=== PATIENT | male | born 1940 | race Caucasian/White ===

== ENCOUNTER 2018-06-18 09:47 | Emergency (ER) | payer MEDICARE, BC ==
--- OUTSIDE RECORDS SUMMARY | 2018-06-18 09:52 | XMS REPORT | Continuity of Care Document ---
:1940 External Reference #:[id number] Author Name Simone Khan M.D. Address [address] [place] [address] Care Team Providers Name Role Phone Laith Millard M.D. Primary Care Physician Unavailable Payers Type Date Identification Numbers Payment Provider Subscriber Policy Number: [id number] Medicare - NGS Luis Armando Bermudez PayID: [id number] [address] [place] [address] Policy Number: [id number] [facility] Luis Armando Bermudez PayID: [id number] [address] [place] [address] Advance Directives Description No Information Available Problems Date Description Provider Status Onset: Hypothyroidism Active Onset: Arthritis Active Onset: 12/28/2014 Primary open angle glaucoma Simone Khan M.D. Active Onset: 12/28/2014 Epiretinal membrane Simone Khan M.D. Active Onset: 12/28/2014 Mild / Early Stage Glaucoma Simone Khan M.D. Active Onset: 12/28/2014 Pseudophakia Simone Khan M.D. Active Onset: 07/01/2015 Primary open-angle glaucoma, mild Simone Khan M.D. Active stage Onset: 07/01/2015 Presence of intraocular lens Simone Khan M.D. Active Onset: Total replacement of right knee joint Active Onset: 05/08/2016 Conjunctival hemorrhage Fabiano Morales M.D. Active Onset: 08/31/2016 Bilateral primary open angle glaucoma Simone Khan M.D. 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[employer] ETOH Use Rarely consumes alcohol Tobacco Use Start: Unknown Patient has never smoked Recreational Drug Use Never Used Drugs Smoking Status Reviewed: 05/19/18 Patient has never smoked Allergies, Adverse Reactions, Alerts Date Description Reaction Status Severity Comments 12/27/2014 Sulfa Antibiotics Active 05/08/2016 Nickel Active Medications Medication Date Status Form Strength Qnty SIG Indications Ordering Provider Fosamax Active Tablets 70mg 1 tab 1x Unknown 018 per week Travatan Z Active Solution 0.004% 5units Instill 1 Simone Brewer 015 Drop To Arleo, Both Eyes M.D. Every Night Synthroid Active Tablets 75mcg 1 tab by Unknown 000 mouth every day Fish Oil Active Capsules 1000mg 1 by Unknown 000 mouth every day Aspirin Active Tablets 81mg 1 Tab PO Unknown 000 Qday Simvastatin Active Tablets 10mg Unknown 000 Vitamin D3 Active Tablets 3000Unit Unknown 000 Pred Forte Hx Suspension 1% 5ml One drop H40.1131 Simone Brewer 018 - three Arleo, times a M.D. 018 day in the left eye for three days, then discontin ue. Pred Forte Hx Suspension 1% 5ml One drop H40.11x1 Simone Brewer 016 - three Arleo, times a M.D. 016 day for three days OD, then three times a day for three days OS. Only after procedure . Oxycodone-Acet 0 Hx Tablets 5-325mg Unknown aminophen 000 - 016 Tessalon 0 Hx Capsules 100mg Unknown Perles 000 - 016 Levoxyl 0 Hx Tablets 25mcg Unknown 000 - 018 Immunizations Description No Information Available Vital Signs Date Vital Result Comment 04/07/2018 3:01pm BP Systolic 130 mmHg BP Diastolic 68 mmHg Heart Rate 58 /min Respiratory Rate 16 /min 03/05/2016 1:36pm BP Systolic 120 mmHg BP Diastolic 70 mmHg Heart Rate 68 /min Respiratory Rate 16 /min 02/27/2016 1:47pm BP Systolic 120 mmHg BP Diastolic 72 mmHg Heart Rate 64 /min Respiratory Rate 16 /min Results Description No Information Available Procedures Date Code Description Status 04/07/2018 12432 Trabeculoplasty By Laser Surgery Completed 02/28/2018 53273 Scanning Computerized Ophthalmic Diagnostic Imag Posterior Completed Seg On 02/28/2018 54933 Visual Field Exam Extended Completed 02/28/2018 15438 Est Patient Comprehensive Exam Completed 09/06/2017 39713 Est Patient Intermediate Exam Completed 03/01/2017 32734 Scanning Computerized Ophthalmic Diagnostic Imag Posterior Completed Seg On 03/01/2017 50049 Visual Field Exam Extended Completed 03/01/2017 29767 Est Patient Comprehensive Exam Completed 08/31/2016 80031 Est Patient Intermediate Exam Completed 05/08/2016 02465 Est Patient Intermediate Exam Completed 03/05/2016 51848 Trabeculoplasty By Laser Surgery Completed 02/27/2016 37158 Trabeculoplasty By Laser Surgery Completed 01/06/2016 43009 Scanning Computerized Ophthalmic Diagnostic Imag Posterior Completed Seg On 01/06/2016 62059 Visual Field Exam Extended Completed 01/06/2016 34627 Est Patient Intermediate Exam Completed 07/01/2015 14838 Fundus Photography With Interpretation And Report Completed 07/01/2015 82778 Est Patient Comprehensive Exam Completed 12/28/2014 70653 Visual Field Exam Extended Completed 12/28/2014 69552 Est Patient Intermediate Exam Completed 12/29/2013 18080 Est Patient Intermediate Exam Completed 01/02/2012 78845 Est Patient Intermediate Exam Completed 09/19/2011 08019 Extracapsular Cataract Extraction W/Intraocular Lens Completed 09/12/2011 06151 Extracapsular Cataract Extraction W/Intraocular Lens Completed 09/07/2011 69761 Ophthalmic Biometry Completed 09/07/2011 74912 Ophthalmic Biometry Completed 09/07/2011 82316 Scanning Computerized Opthalmic Diagnostic Posterior Seg Completed Retina 09/07/2011 55281 Visual Field Exam Extended Completed 01/24/2011 20652 Est Patient Intermediate Exam Completed 01/24/2011 92261 Determination Of Refractive State Completed 03/21/2009 63110 Scanning Laser W/Interp And Report Completed 03/21/2009 55531 Determination Of Refractive State Completed 03/21/2009 38906 Est Patient Comprehensive Exam Completed 03/21/2009 30600 Pachymetry Completed 12/07/2008 86305 Visual Field Exam Extended Completed 12/01/2008 56850 Gonioscopy Completed 11/17/2008 36816 Fundus Photography With Interpretation And Report Completed 11/17/2008 01186 Determination Of Refractive State Completed 11/17/2008 99295 Est Patient Comprehensive Exam Completed Encounters Type Date Location Provider Dx Diagnosis Office Visit 03/31/2018 Simone Aguiar, H40.1131 Primary 11:15a carlene LU M.D. 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 open-angle glaucoma, mild stage Office Visit 06/29/2014 10:15a Simone Segura 365.11 Primary Twila Khan MD, pc Lempert, M.D. Angle Glaucoma 365.71 Mild / Early Stage Glaucoma Office Visit 07/01/2013 11:15a Colton Aguiar, 365.11 Primary Open carlene LU M.D. Angle Glaucoma 365.71 Mild / Early Stage Glaucoma Office Visit 12/31/2012 11:00a Colton Aguiar, 365.11 Primary Open carlene LU M.D. Angle Glaucoma 365.71 Mild / Early Stage Glaucoma Office Visit 07/03/2012 10:15a Colton Aguiar, 365.11 Primary carlene Mattson MD, M.D. 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 Angle Glaucoma/ Suspect 365.71 Mild / Early Stage Glaucoma Office Visit 07/20/2010 10:15a Colton Aguiar, 365.11 Primary Open carlene LU M.D. Angle Glaucoma Office Visit 01/18/2010 10:30a Colton Aguiar, 365.11 Primary Open , carlene Jimenez Angle Glaucoma Office Visit 07/20/2009 10:30a Colton Aguiar, 365.11 Primary Open carlene LU M.D. 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 Angle Glaucoma Office Visit 12/01/2008 10:15a Colton Aguiar, 365.11 Primary Open carlene LU M.D. Angle Glaucoma Plan of Treatment 05/19/2018 - Simone Khan M.D.H40.1131 Primary open-angle glaucoma, bilateral, mild stageComments:Smoking can increase the risk of developing or worsening any eye related disease, as well as affect your overall health. If you are a smoker, we strongly recommend that you quit.If you are not a smoker, we strongly recommend that you do not start. Your glaucoma is stable at this time.Your eye pressure is within an acceptable range, and your testing does not show any further deterioration at this time. Please continue your treatment. Your left eye responded well to the laser treatment. Your eye pressure in your left eye is within the target range without adding additional medication. We will continue to monitor your eye pressure.Follow up:6 Month Follow Up OCT MAC IOP Check At your next visit, we are not planning to dilate your eyes. However , if you have any changes in your vision or new symptoms, there are certain situations that require us to dilate your eyes. If Dr. Khan requests any additional testing, that may require extra time. If you have any questions before your next appointment, please call our office at .Z96.1 Presence of intraocular lensComments:The artificial lens implants in both eyes appear to be stable at this time.H35.372 Puckering of macula, left eyeComments: A Macular Pucker is a wrinkling of the retina tissue. It can cause distortion in your vision. Pleasecall the office if you notice a decrease or new distortion in your vision before then.Follow up:6 Month Follow Up OCT MAC At your next visit, we are not planning to dilate your eyes. However, ifyou have any changes in your vision or new symptoms, there are certain situations that require us todilate your eyes. If Dr. Khan requests any additional testing, that may require extra time. If you have any questions before your next appointment, please call our office at .
[2018-06-18 09:57] VITALS: BP 133/74
[2018-06-18] MEDS ORDERED: Tetan/Diph/Pertus SYR(Tdap)* 0.5 ML SYR(BOOSTRIX) use SYR IM ONE (10:03)
--- NOTE | 2018-06-18 10:59 | UC ---
Hand/Wrist HPI - HPI Summary HPI Summary: WAS USING A SICKLE YESTERDAY TO CLEAR HIS YARD WHEN HE ACCIDENTALLY STRUCK THE BACK OF HIS LEFT HAND. PATIENT SUSTAINED A PUNCTURE WOUND. TODAY HAS SIGNIFICANT SWELLING WITH SOME REDNESS AND TENDERNESS. NOT UP-TO-DATE TETANUS BOOSTER. - History Of Current Complaint Chief Complaint: UCSkin Stated Complaint: HAND INJURY Time Seen by Provider: 06/18/18 10:01 Hx Obtained From: Patient Onset/Duration: Sudden Onset, Lasting Days - 1 DAY, Still Present Severity Initially: Moderate Severity Currently: Moderate Pain Intensity: 2 Pain Scale Used: 0-10 Numeric Character Of Pain: Dull Aggravating Factor(s): Movement Alleviating Factor(s): Rest Associated Signs And Symptoms: Positive: Swelling, Redness Related History: Dominant Hand Right - Allergies/Home Medications Allergies/Adverse Reactions: Allergies Allergy/AdvReac Type Severity Reaction Status Date / Time Sulfa (Sulfonamide Allergy Stomach Verified 06/18/18 09:57 Antibiotics) Cramps NANCY Allergy Unknown Uncoded 06/18/18 09:57 Reaction Details Home Medications: Home Medications Acetaminophen [Acetaminophen Extra Strength] 500 mg PO Q6H PRN 06/18/18 [ History Confirmed 06/18/18] Alendronate Sodium [Fosamax-] 70 mg PO WEEKLY 06/18/18 [History Confirmed ] Aspirin EC TAB* [Ecotrin EC Low Dose 81 MG*] 81 mg PO DAILY 06/18/18 [History Confirmed 06/18/18] [place]-3 Fatty Acids/Fish Oil [Fish Oil 1,000 mg Capsule] 2 each PO DAILY [History Confirmed 06/18/18] PMH/Surg Hx/FS Hx/Imm Hx Other GI/ History: ENLARGED PROSTATE S/P TURP Other Cancer History: SKIN CANCER - Surgical History Surgical History: Yes Surgery Procedure, Year, and Place: 1984 EXPLORATORY: SARCOiDOSIS [facility]. 2011 BILATERAL CATARACTS [facility]. 07/2013 SKIN CANCER LEFT LEG squamous cell, [facility], 2011-turp of the prostate, left knee orthoscopic SX meniscus 2000.right total knee - Family History Known Family History: Negative: Hypertension - Social History Alcohol Use: Rare Alcohol Amount: 1-2 DRINKS/MONTH Substance Use Type: None Smoking Status (MU): Never Smoked Tobacco Have You Smoked in the Last Year: No - Immunization History Most Recent Influenza Vaccination: 2014 Most Recent Tetanus Shot: 2011 Most Recent Pneumonia Vaccination: 2014 Review of Systems Constitutional: Negative Skin: Other - ERYTHEMA AND SWELLING LEFT HAND Respiratory: Negative Cardiovascular: Negative Gastrointestinal: Negative Musculoskeletal: Decreased ROM, Edema All Other Systems Reviewed And Are Negative: Yes Physical Exam Triage Information Reviewed: Yes Appearance: Well-Appearing, No Pain Distress, Well-Nourished Vital Signs: Initial Vital Signs Temp 97.2 F 06/18/18 09:52 Pulse 57 06/18/18 09:52 Resp 16 06/18/18 09:52 BP 133/74 06/18/18 09:52 Pulse Ox 97 06/18/18 09:52 Vital Signs Reviewed: Yes Eyes: Positive: Conjunctiva Clear ENT: Positive: Hearing grossly normal Neck: Positive: Supple Respiratory: Positive: No respiratory distress, No accessory muscle use Cardiovascular: Positive: Pulses Normal Abdomen Description: Positive: Soft Musculoskeletal: Positive: ROM Limited @ - FLEXION LEFT FINGERS MCP JOINTS, Edema @ - LEFT HAND DORSALLY OVERLYING 2ND AND 3RD METACARPALS, Other: - MILDLY TENDER OVER 2ND AND 3RD METACARPALS Neurological: Positive: Alert Psychological: Positive: Age Appropriate Behavior Skin: Positive: Other - ERYTHEMA AND EDEMA DORSUM LEFT HAND WITH CENTRAL PUNCTURE WOUND Diagnostics - Radiology LEFT HAND XRAY Radiology Interpretation Completed By: Radiologist Summary of Radiographic Findings: NO ACUTE BONY INJURY OR FB SEEN Hand/Wrist Course/Dx - Differential Dx/Diagnosis Provider Diagnoses: 1. PUNCTURE WOUND LEFT HAND. 2. CELLULITIS Discharge - Sign-Out/Discharge Documenting (check all that apply): Patient Departure All imaging exams completed and their final reports reviewed: Yes - Discharge Plan Condition: Stable Disposition: HOME Prescriptions: Cephalexin CAP* [Keflex 500 CAP*] 1,000 mg PO BID #28 cap Patient Education Materials: Puncture Wound (ED), Cellulitis (ED) Referrals: Steven Alas MD [Medical Doctor] - If Needed Aaron Millard MD [Primary Care Provider] - If Needed Additional Instructions: NO BONY INJURY OR RETAINED FOREIGN BODY SEEN ON X-RAY TODAY PER MY INITIAL INTERPRETATION. WE WILL CALL YOU IF RADIOLOGY READ DIFFERS. WILL COVER FOR CELLULITIS WITH KEFLEX. TAKE TWICE DAILY FOR THE FULL 7 DAYS. KEEP THE AREA CLEAN. ELEVATE TO HELP REDUCE SWELLING. OTC MEDS NEEDED FOR DISCOMFORT. YOUR SWELLING IMPROVES YOUR RANGE OF MOTION SHOULD RETURN. YOU WILL NEED TO FOLLOW-UP WITH ORTHOPEDIC SURGERY IF YOU DO NOT REGAIN FULL RANGE OF MOTION OF YOUR HAND/FINGERS. GO TO THE ED WITHOUT FAIL IF YOU DEVELOP WORSENING PAIN, SWELLING, NUMBNESS/TINGLING, FEVER, PURULENT DRAINAGE OR ANY OTHER CONCERNING SYMPTOMS. TETANUS IMMUNIZATION GIVEN (TDAP): You have been given an immunization against tetanus. Please record this in your records. In general, a booster is needed only once every 10 years. The tetanus shot protects against tetanus or "lockjaw," which is a complication of certain wound infections (the tetanus shot cannot protect against the actual infection). The immunization site may become warm and red due to local reaction. If this occurs, apply warm compresses and take aspirin or ibuprofen to reduce inflammation and discomfort. Return for evaluation if the reaction becomes severe. - Billing Disposition and Condition Condition: STABLE Disposition: Home
--- NOTE | 2018-06-18 11:14 | RAD ---
HISTORY: TRAUMA, PAIN, SWELLING, EVAL FB COMPARISONS: None VIEWS: 4 , Frontal, lateral, and oblique views of the left hand FINDINGS: BONE DENSITY: There is diffuse osteopenia. BONES: There is no displaced fracture. JOINTS: There is osteoporosis of the interphalangeal joints and first CMC joint. ALIGNMENT: There is no dislocation. SOFT TISSUES: Unremarkable. OTHER FINDINGS: There is no radiopaque foreign body.. IMPRESSION: 1. OSTEOPENIA. 2. OSTEOARTHRITIS. 3. NO RADIOPAQUE FOREIGN BODY. 4. NO ACUTE OSSEOUS INJURY. IF SYMPTOMS PERSIST, RECOMMEND REPEAT IMAGING.
== END 2018-06-18 11:10 | disposition home or self-care (01) ==
LOC: UCEAST 09:47
DX: S61.432A Puncture wound without foreign body of left hand, initial encounter (principal); L03.114 Cellulitis of left upper limb; W27.8XXA Contact with other nonpowered hand tool, initial encounter; Y93.H9 Activity, other involving exterior property and land maintenance, building and construction; Y92.096 Garden or yard of other non-institutional residence as the place of occurrence of the external cause; Z23 Encounter for immunization; Z88.2 Allergy status to sulfonamides
CPT/HCPCS: 90471; 90715; 99212; G0463

== ENCOUNTER 2019-06-12 19:30 | Emergency (ER) | payer MEDICARE, BC ==
[2019-06-12 19:42] VITALS: BP 128/70
--- NOTE | 2019-06-12 19:56 | UC ---
Skin Complaint HPI - HPI Summary HPI Summary: 79-year-old male who had a tick on his right hip which was removed today. He is not sure how many days it has been embedded. - History of Current Complaint Chief Complaint: UCSkin Time Seen by Provider: 06/12/19 19:32 Stated Complaint: TICK Hx Obtained From: Patient Onset/Duration: Gradual Onset Skin Exposure Onset/Duration: Days Ago Timing: Constant Onset Severity: Mild Current Severity: Mild Pain Intensity: 0 Location: Other - Right hip Character: Redness - Small scabs in place from where his tried to take the tick out using a needle. Aggravating Factor(s): Nothing Alleviating Factor(s): Nothing Associated Signs & Symptoms: Positive: Negative - Allergy/Home Medications Allergies/Adverse Reactions: Allergies Allergy/AdvReac Type Severity Reaction Status Date / Time Sulfa (Sulfonamide Allergy Stomach Verified 06/12/19 19:42 Antibiotics) Cramps NANCY Allergy Unknown Uncoded 06/18/18 09:57 Reaction Details PMH/Surg Hx/FS Hx/Imm Hx Previously Healthy: Yes - Surgical History Surgical History: Yes Surgery Procedure, Year, and Place: 1984 EXPLORATORY: SARCOiDOSIS [facility]. 2011 BILATERAL CATARACTS [facility]. 07/2013 SKIN CANCER LEFT LEG squamous cell, [facility], 2011-turp of the prostate, left knee orthoscopic SX meniscus 2000.right total knee - Family History Known Family History: Negative: Hypertension - Social History Alcohol Use: Rare Alcohol Amount: 1-2 DRINKS/MONTH Substance Use Type: None Smoking Status (MU): Never Smoked Tobacco Have You Smoked in the Last Year: No - Immunization History Most Recent Influenza Vaccination: 2014 Most Recent Tetanus Shot: 2011 Most Recent Pneumonia Vaccination: 2013 Review of Systems All Other Systems Reviewed And Are Negative: Yes Skin: Positive: Other - Small scab on right hip where the tick was embedded. Is Patient Immunocompromised?: No Physical Exam Triage Information Reviewed: Yes Appearance: Well-Appearing, No Pain Distress, Well-Nourished Vital Signs: Initial Vital Signs Temp 98 F 06/12/19 19:37 Pulse 67 06/12/19 19:37 Resp 16 06/12/19 19:37 BP 128/70 06/12/19 19:37 Pulse Ox 97 06/12/19 19:37 Vital Signs Reviewed: Yes Skin: Positive: Other - Patient has a small scab present on his right hip for the tick was embedded. Course/Dx - Course Course Of Treatment: Patient is comfortable here. I attempted to remove the scab and look for the tick but no tick parts were noted. Patient was given information about Lyme disease and is to follow-up with his primary care provider as needed. - Diagnoses Provider Diagnosis: Tick bite Discharge ED - Sign-Out/Discharge Documenting (check all that apply): Patient Departure All imaging exams completed and their final reports reviewed: No Studies - Discharge Plan Condition: Good Disposition: HOME Prescriptions: DOXYcycline CAP(*) [DOXYcycline 100MG CAP(*)] 200 mg PO DAILY 1 Days #2 cap Patient Education Materials: Tick Bite (ED) Referrals: Adriana Matthews MD [Primary Care Provider] - Additional Instructions: Follow-up with your primary care provider if you develop fever, chills, body aches or rash. - Billing Disposition and Condition Condition: GOOD Disposition: Home - Attestation Statements Provider Attestation: Per institutional requirements, I have reviewed the chart, however, I was not consulted specifically or made aware of this patient by the midlevel provider. I did not personally evaluate, interact with , or disposition this patient.
== END 2019-06-12 20:02 | disposition home or self-care (01) ==
LOC: UCEAST 19:30
DX: S70.261A Insect bite (nonvenomous), right hip, initial encounter (principal); Z88.2 Allergy status to sulfonamides; Z91.09 Other allergy status, other than to drugs and biological substances; W57.XXXA Bitten or stung by nonvenomous insect and other nonvenomous arthropods, initial encounter; Y92.9 Unspecified place or not applicable
CPT/HCPCS: 99212; G0463